=== PATIENT | male | born 1965 | race African-American/Black ===

== ENCOUNTER 2016-11-24 14:55 | Inpatient (IN) | payer OTHER ==
[~2016-11-24] VITALS: Ht 175.3 cm; Wt 117.9 kg
[2016-11-24] MEDS ORDERED: AMLO10TA80 PO (15:10)
[2016-11-24] MEDS ORDERED: ONDANSETRON HCL 4MG/2ML VIAL IV STA ×2 (15:28→17:57)
[2016-11-24] MEDS ORDERED: SODIUM CHLORIDE 0.9% 1,000 ML IV ONE ×2 (15:28→17:57)
[2016-11-24] MEDS ORDERED: MORPHINE SULFATE 4 MG/ML CPJ (NOT FOR IM USE) IV STA ×2 (15:28→17:57)
[2016-11-24 15:49] LABS: BASOPHILS % 0.5 % (0.0-2.0); EOSINOPHILS % 0.5 % (0.0-5.0); HEMATOCRIT. 39.7 % (42.0-52.0); HEMOGLOBIN. 13.2 g/dL (14.0-18.0); INR 1.1; LYMPHOCYTES % 22.5 % (20.0-50.0); MEAN CORPUSCULAR HEMOGLOBIN 34.6 pg (28.0-32.0); MEAN CORPUSCULAR VOLUME 103.7 fL (80.0-94.0); MEAN PLATELET VOLUME 6.8 fl (7.4-10.4); MONOCYTES % 6.3 % (2.0-8.0); NEUTROPHILS % 70.2 % (40.0-76.0); PLATELET 247 x1000/uL (130-400); PROTHROMBIN TIME 11.3 sec; RED BLOOD CELL COUNT 3.83 mill/uL (4.7-6.1)
[2016-11-24 15:54] LABS: CARBON DIOXIDE 21 mEq/L (21-32); CHLORIDE 100 mEq/L (98-107); ETHANOL BLOOD < 10 mg/dL
[2016-11-24 15:58] LABS: TROPONIN I < 0.02 ng/mL (0.00-0.04)
[2016-11-24] MEDS ORDERED: ASPIRIN 81MG TABLET PO ONE (18:00)
[2016-11-24] MEDS ORDERED: LEVOFLOXACIN 750MG PREMIX 150 ML IV ONE (19:00)
[2016-11-24] MEDS ORDERED: POTASSIUM BICARB/CIT ACID 25 MEQ TABLET.EFF PO ONE (19:00)
[2016-11-24 19:10] LABS: CLARITY URINE CLEAR (CLEAR); COLOR URINE DARK YELLOW (YELLOW); GLUCOSE URINE NEGATIVE (NEGATIVE); KETONES URINE 1+ (NEGATIVE); LEUKOCYTE ESTERASE URINE TRACE (NEGATIVE); NITRITE URINE NEGATIVE (NEGATIVE); OCCULT BLOOD URINE 3+ (NEGATIVE); PH URINE 5.5 (4.5-8.0); PROTEIN URINE 1+ (NEGATIVE); SPECIFIC GRAVITY URINE 1.022 (1.005-1.030)
[2016-11-24] MEDS ORDERED: FUROSEMIDE 40MG/4ML VIAL IVP ONE (19:15)
[2016-11-24] MEDS ORDERED: ACETAMINOPHEN 325MG TABLET PO PRN (19:30)
[2016-11-24] MEDS ORDERED: IPRATROPIUM/ALBUTEROL 0.5-3(2.5)MG/3ML NEB INH PRN (19:30)
[2016-11-24] MEDS ORDERED: ONDANSETRON HCL 4MG/2ML VIAL IV PRN (19:30)
[2016-11-24] MEDS ORDERED: ACETAMINOPHEN 650MG/20.3ML UDC GT PRN (19:30)
[2016-11-24] MEDS ORDERED: ACETAMINOPHEN 650MG SUPP PR PRN (19:30)
[2016-11-24 19:37] LABS: *AMPHETAMINES SCREEN URINE NEGATIVE (NEGATIVE); *BARBITURATES SCREEN URINE NEGATIVE (NEGATIVE); *BENZODIAZEPINES SCREEN URINE PRESUMTIVE POSITIVE (NEGATIVE); *COCAINE SCREEN URINE NEGATIVE (NEGATIVE); CANNABINOID URINE SCREEN NEGATIVE (NEGATIVE); METHADONE URINE SCREEN NEGATIVE (NEGATIVE); OPIATES URINE SCREEN NEGATIVE (NEGATIVE); PHENCYCLIDINE URINE SCREEN NEGATIVE (NEGATIVE)
[2016-11-24 23:30] LABS: CREATINE KINASE 62 IU/L (39-308); TROPONIN I < 0.02 ng/mL (0.00-0.04)
[2016-11-25] MEDS ORDERED: DIGOXIN 500MCG/2ML AMP IV NR (03:00)
[2016-11-25] MEDS: HYDROCODONE/ACETAMINOPHEN 5/325MG TABLET PO PRN ×2 (03:21→12:18)
[2016-11-25 04:00] VITALS: BP 122/78
[2016-11-25 04:28] VITALS: BP 122/95
[2016-11-25] MEDS ORDERED: AMLO10TA4 PO (04:46)
[2016-11-25] MEDS ORDERED: MAGNESIUM CITRATE 300ML SOLUTION PO NR (05:00)
[2016-11-25] MEDS ORDERED: FOLIC ACID 1 MG, THIAMINE HCL 100 MG, MVI, ADULT NO.1 10 ML in DEXTROSE 5% WATER 1,000 ML IV NR ×4 (05:00)
[2016-11-25 05:59] LABS: CARBON DIOXIDE 24 mEq/L (21-32); CHLORIDE 98 mEq/L (98-107); HDL CHOLESTEROL 27 mg/dL (40-59); LDL CHOLESTEROL 96 mg/dL (5-100)
[2016-11-25 06:09] LABS: CREATINE KINASE 70 IU/L (39-308); TROPONIN I < 0.02 ng/mL (0.00-0.04)
[2016-11-25 06:14] LABS: BASOPHILS % 0.4 % (0.0-2.0); EOSINOPHILS % 0.7 % (0.0-5.0); HEMATOCRIT. 37.3 % (42.0-52.0); HEMOGLOBIN. 12.4 g/dL (14.0-18.0); LYMPHOCYTES % 24.8 % (20.0-50.0); MEAN CORPUSCULAR HEMOGLOBIN 34.8 pg (28.0-32.0); MEAN CORPUSCULAR VOLUME 104.4 fL (80.0-94.0); MEAN PLATELET VOLUME 7.1 fl (7.4-10.4); MONOCYTES % 6.8 % (2.0-8.0); NEUTROPHILS % 67.3 % (40.0-76.0); PLATELET 225 x1000/uL (130-400); RED BLOOD CELL COUNT 3.58 mill/uL (4.7-6.1); RED CELL DISTRIBUTION WIDTH 16.8 % (11.6-14.6)
[2016-11-25] MEDS: SODIUM CHLORIDE 0.9% INJ 3ML FLUSH IVF SCH ×3 (06:16→21:51)
[2016-11-25 08:00] VITALS: BP 133/85
[2016-11-25 12:05] VITALS: BP 127/84
[2016-11-25] MEDS ORDERED: SENNOSIDES/DOCUSATE SOD 8.6/50MG TABLET PO PRN (15:45)
[2016-11-25 16:00] VITALS: BP 114/75
[2016-11-25] MEDS: DOCUSATE SODIUM 250MG CAPSULE PO SCH (17:00)
[2016-11-25 20:00] VITALS: BP 136/96
[2016-11-25 20:22] LABS: T4 FREE 1.35 ng/dL (0.76-1.46)
[2016-11-25] MEDS: CARVEDILOL 3.125 MG TABLET PO SCH (21:46)
[2016-11-25] MEDS ORDERED: GABAPENTIN 300MG CAPSULE PO NR (22:15)
[2016-11-25] MEDS ORDERED: POTASSIUM CHLORIDE 20MEQ TABLET SR PO NR (22:30)
[2016-11-25 22:48] LABS: CREATINE KINASE 62 IU/L (39-308); CREATINE KINASE MB FRACTION < 0.5 ng/mL (0.5-3.6); TROPONIN I < 0.02 ng/mL (0.00-0.04)
[2016-11-26] VITALS: BP 126/90
[2016-11-26 00:44] LABS: CLARITY URINE CLEAR (CLEAR); COLOR URINE DARK YELLOW (YELLOW); GLUCOSE URINE NEGATIVE (NEGATIVE); KETONES URINE 1+ (NEGATIVE); LEUKOCYTE ESTERASE URINE TRACE (NEGATIVE); NITRITE URINE POSITIVE (NEGATIVE); OCCULT BLOOD URINE 2+ (NEGATIVE); PH URINE 6.5 (4.5-8.0); PROTEIN URINE 1+ (NEGATIVE); SPECIFIC GRAVITY URINE 1.025 (1.005-1.030)
[2016-11-26 03:58] VITALS: BP 114/76
[2016-11-26 05:40] LABS: BASOPHILS % 0.3 % (0.0-2.0); EOSINOPHILS % 2.4 % (0.0-5.0); HEMATOCRIT. 34.1 % (42.0-52.0); HEMOGLOBIN. 11.6 g/dL (14.0-18.0); LYMPHOCYTES % 31.7 % (20.0-50.0); MEAN CORPUSCULAR HEMOGLOBIN 35.3 pg (28.0-32.0); MEAN PLATELET VOLUME 7.1 fl (7.4-10.4); MONOCYTES % 8.5 % (2.0-8.0); NEUTROPHILS % 57.1 % (40.0-76.0); PLATELET 205 x1000/uL (130-400); RED BLOOD CELL COUNT 3.28 mill/uL (4.7-6.1); RED CELL DISTRIBUTION WIDTH 17.1 % (11.6-14.6)
[2016-11-26] MEDS: SODIUM CHLORIDE 0.9% INJ 3ML FLUSH IVF SCH ×3 (05:56→22:53)
[2016-11-26 06:33] LABS: CARBON DIOXIDE 27 mEq/L (21-32); CHLORIDE 99 mEq/L (98-107); CREATINE KINASE 63 IU/L (39-308)
[2016-11-26 06:36] LABS: CREATINE KINASE MB FRACTION < 0.5 ng/mL (0.5-3.6); TROPONIN I < 0.02 ng/mL (0.00-0.04)
[2016-11-26 08:00] VITALS: BP 124/92
[2016-11-26] MEDS: DOCUSATE SODIUM 250MG CAPSULE PO SCH ×2 (09:00→15:38)
[2016-11-26] MEDS ORDERED: MAGNESIUM 2 G PREMIX 50 ML IV NR (09:30)
[2016-11-26] MEDS: CARVEDILOL 3.125 MG TABLET PO SCH (10:03)
[2016-11-26] MEDS: HYDROCODONE/ACETAMINOPHEN 5/325MG TABLET PO PRN ×2 (10:12→21:18)
[2016-11-26] MEDS ORDERED: REGADENOSON 0.4 MG/5 ML IV ONE ×2 (10:45→12:48)
[2016-11-26] MEDS ORDERED: POTASSIUM CHLORIDE INJ 40 MEQ in DEXT 5% WATER 250 ML IV NR (11:00)
[2016-11-26 12:00] VITALS: BP 103/73
[2016-11-26] MEDS ORDERED: COR12 PO (13:18)
[2016-11-26 15:39] VITALS: BP 117/76
[2016-11-26 17:02] LABS: CREATINE KINASE 69 IU/L (39-308); CREATINE KINASE MB FRACTION < 0.5 ng/mL (0.5-3.6); TROPONIN I < 0.02 ng/mL (0.00-0.04)
[2016-11-26 20:00] VITALS: BP 124/58
[2016-11-26] MEDS ORDERED: GABAPENTIN 300MG CAPSULE PO SCH (21:00)
[2016-11-26] MEDS ORDERED: CARVEDILOL 6.25 MG TABLET PO SCH (21:00)
[2016-11-26] MEDS: ENOXAPARIN 30MG/0.3ML SYR SUBCUT SCH ×2 (21:00→21:18)
[2016-11-26] MEDS: CARVEDILOL 12.5MG TABLET PO SCH (21:17)
[2016-11-27] VITALS: BP 111/80
[2016-11-27 04:00] VITALS: BP 121/85
[2016-11-27] MEDS: SODIUM CHLORIDE 0.9% INJ 3ML FLUSH IVF SCH ×2 (06:42→15:51)
[2016-11-27 08:00] VITALS: BP 116/80
[2016-11-27] MEDS: ENOXAPARIN 30MG/0.3ML SYR SUBCUT SCH (09:00)
[2016-11-27] MEDS: DOCUSATE SODIUM 250MG CAPSULE PO SCH (09:00)
[2016-11-27] MEDS: CARVEDILOL 12.5MG TABLET PO SCH (09:42)
[2016-11-27 12:00] VITALS: BP 114/77
[2016-11-27] MEDS: HYDROCODONE/ACETAMINOPHEN 5/325MG TABLET PO PRN (12:18)
[2016-11-27 15:47] VITALS: BP 119/74
[2016-11-27 16:09] VITALS: BP 119/74
== END 2016-11-27 18:00 | disposition home or self-care (01) | DRG 243 ==
LOC: ER 18:16 → 6WST 19:36
PROVIDERS: ADMIT Family Medicine; ATTEND Family Medicine
DX: K21.9 Gastro-esophageal reflux disease without esophagitis (principal); G93.41 Metabolic encephalopathy; I50.31 Acute diastolic (congestive) heart failure; E43 Unspecified severe protein-calorie malnutrition; M62.82 Rhabdomyolysis; N13.30 Unspecified hydronephrosis; E87.2 Acidosis; E87.1 Hypo-osmolality and hyponatremia; I11.0 Hypertensive heart disease with heart failure; I47.1 Supraventricular tachycardia; E03.9 Hypothyroidism, unspecified; D53.9 Nutritional anemia, unspecified; E87.6 Hypokalemia; D63.8 Anemia in other chronic diseases classified elsewhere; N39.0 Urinary tract infection, site not specified; K64.9 Unspecified hemorrhoids; K59.00 Constipation, unspecified; R19.7 Diarrhea, unspecified; E66.9 Obesity, unspecified; E78.5 Hyperlipidemia, unspecified; K76.0 Fatty (change of) liver, not elsewhere classified; K80.20 Calculus of gallbladder without cholecystitis without obstruction; F17.210 Nicotine dependence, cigarettes, uncomplicated; Z68.34 Body mass index [BMI] 34.0-34.9, adult; Z79.899 Other long term (current) drug therapy; Z87.442 Personal history of urinary calculi; Z82.49 Family history of ischemic heart disease and other diseases of the circulatory system
CPT/HCPCS: 36415; 71010; 74176; 76700; 78452; 80048; 80053; 80061; 80305; 81001; 82550; 82553; 83036; 83605; 83690; 83735; 83880; 84439; 84443; 84484; 85025; 85379; 85610; 87040; 87086; 93005; 93017; 93306; 93970; 99291; A9500; G0482; J1160; J1650; J1940; J1956; J2270; J2405; J2785; J3411; J3475; J3480; J3490; J7030; J7050; J7060; J7070